=== PATIENT | female | born 1960 | race Caucasian/White ===

== ENCOUNTER 2016-07-23 06:45 | Observation (INO) | payer OTHER ==
[~2016-07-23] VITALS: Ht 177.8 cm; Wt 115.5 kg
[~2016-07-23 06:45] MED LIST: ADVAIR 500/501 DISK IH; ALEVE220 MG PO; ASPIR-LOW81 MG PO; BENICAR HCT 401 EAC1 PO; CARAFATE100 MG/ML PO; CITALOPRAM HBR20 MG PO; CLARITIN,ALAVAR10 MG PO; GLUCOMETER MC; LANCETS1 EACH MC; LASIX40 MG PO; METFORMIN HCL500 MG PO; MICRO-K10 ME2 PO; OPCON-A EYE DRO15 ML BOTH EYES; PERCOCET 5/31 TABLET PO; SINGULAIR10 MG PO; TEST STRIPS MC; VENTOLIN HFA18 GM IH; XARELTO20 MG PO
[2016-07-23 07:27] LABS: EOSINOPHIL (%) 2.3 % (0-5); EOSINOPHIL COUNT 0.2 K/uL (0-0.3); HEMATOCRIT 37.9 % (36.0-46.0); IMMATURE GRANULOCYTE (%) 0.8 % (0.0-0.7); IMMATURE GRANULOCYTE COUNT 0.1 K/uL; INSTRUMENT ABS NEUTROPHIL CT 4.6 K/uL; LYMPHOCYTE COUNT 2.4 K/uL (1.0-2.8); MCH 32.2 PG (29.0-34.0); MCHC 35.4 G/DL (30.0-36.0); MCV 91.1 FL (83-99); MEAN PLAT.VOLUME 9.7 uM^3 (9.5-12.4); MONOCYTE (%) 6.9 % (3-12); MONOCYTE COUNT 0.5 K/uL (0-0.8); NEUTROPHIL (%) 58.7 % (45-76); NEUTROPHIL COUNT 4.6 K/uL (1.8-6.4); PLATELET COUNT 237 K/uL (156-360); RBC DIS.WIDTH-CV 11.8 % (11.8-14.6); RBC DIS.WIDTH-SD 39.6 % (39-53); RED BLOOD COUNT 4.16 M/uL (3.80-5.20); WHITE BLOOD COUNT 7.9 K/uL (4.1-10.2)
[2016-07-23 07:40] LABS: D-DIMER ELISA 0.19 mg/L FEU (< 0.57); INTER. NORMALIZED RATIO 1.3; PROTHROMBIN TIME 13.6 (9.2-11.2); PTT 32.4 (25-32)
[2016-07-23 07:55] LABS: TROP-I INTERPRETATION NEGATIVE; TROPONIN-I < 0.01 ng/mL (0.0-0.30)
[2016-07-23 08:07] LABS: ADD MIUA? YES; BILIRUBIN NEGATIVE; BLOOD NEGATIVE; COLOR YELLOW ((YELLOW)); GLUCOSE (STRIP) >=500; KETONES NEGATIVE; LEUKOCYTES SMALL; NITRITE NEGATIVE; PROTEIN (STRIP) NEGATIVE; SPECIFIC GRAVITY 1.022 (1.000-1.030); UROBILINOGEN 0.2 MG/DL (0.2-1.0)
[2016-07-23 08:07] LABS: CHLORIDE 102 mEq/L (99-109); POTASSIUM 3.2 mEq/L (3.7-5.4); SODIUM 140 mEq/L (136-147)
[2016-07-23 08:08] LABS: GLUCOSE 321 mg/dL (70-99)
[2016-07-23 08:10] LABS: ANION GAP 11 MEQ/L (2-14)
[2016-07-23 08:12] LABS: GFR ESTIMATE (CALCULATED) > 59 mL/min/
[2016-07-23 08:13] LABS: UREA NITROGEN (BUN) 18 mg/dL (9-23)
[2016-07-23 08:39] LABS: BACTERIA NONE SEEN /HPF; EPITHELIAL CELLS 2+ /HPF; MUCUS NONE SEEN /LPF; RED BLOOD CELLS 0-5 /HPF (0-5); UCUL ADDED? NO; WHITE BLOOD CELLS 0-5 /HPF (0-5)
[2016-07-23 10:22] LABS: TROP-I INTERPRETATION NEGATIVE; TROPONIN-I < 0.01 ng/mL (0.0-0.30)
[2016-07-23 12:22] LABS: POINT-OF-CARE METER ID UU14100415
[2016-07-23] MEDS ORDERED: BENICAR40 MG PO (15:48)
[2016-07-23] MEDS ORDERED: PATADAY2.5 ML BOTH EYES (15:48)
[2016-07-23] MEDS ORDERED: HYDROCHLOROTHIA25 MG PO (15:49)
[2016-07-23] MEDS ORDERED: FUROSEMIDE40 MG PO (15:49)
[2016-07-23] MEDS ORDERED: KLOR-CON M2020 MEQ PO (15:49)
[2016-07-23] MEDS ORDERED: IBUPROFEN800 MG PO (15:50)
[2016-07-23] MEDS ORDERED: AFRIN,GENASAL D15 ML BOTH NARES (15:51)
[2016-07-23] MEDS ORDERED: PATANOL OP100 DROP/5 BOTH EYES (15:53)
[2016-07-23] MEDS ORDERED: XARELTO20 MG PO (15:55)
[2016-07-23 16:00] VITALS: BP 184/79
[2016-07-23 18:44] LABS: POINT-OF-CARE METER ID UU14162513
[2016-07-23 19:28] LABS: TROP-I INTERPRETATION NEGATIVE; TROPONIN-I < 0.01 ng/mL (0.0-0.30)
[2016-07-23 21:57] LABS: POINT-OF-CARE METER ID UU14162513
[2016-07-24] VITALS (7 sets, daily range): BP systolic 106–163; BP diastolic 53–74
[2016-07-24 01:58] LABS: TROP-I INTERPRETATION NEGATIVE; TROPONIN-I < 0.01 ng/mL (0.0-0.30)
[2016-07-24 08:19] LABS: POINT-OF-CARE METER ID UU13113700
[2016-07-24 12:12] LABS: HEMATOCRIT 35.1 % (36.0-46.0); MCH 32.5 PG (29.0-34.0); MCV 92.6 FL (83-99); MEAN PLAT.VOLUME 10.4 uM^3 (9.5-12.4); PLATELET COUNT 215 K/uL (156-360); RBC DIS.WIDTH-CV 11.9 % (11.8-14.6); RBC DIS.WIDTH-SD 40.4 % (39-53); RED BLOOD COUNT 3.79 M/uL (3.80-5.20); WHITE BLOOD COUNT 7.3 K/uL (4.1-10.2)
[2016-07-24 12:22] LABS: CHLORIDE 105 mEq/L (99-109); SODIUM 141 mEq/L (136-147)
[2016-07-24 12:25] LABS: GLUCOSE 234 mg/dL (70-99)
[2016-07-24 12:26] LABS: ANION GAP 8 MEQ/L (2-14); POTASSIUM 4.5 mEq/L (3.7-5.4)
[2016-07-24 12:27] LABS: TOTAL BILIRUBIN 0.7 mg/dL (0.0-1.0)
[2016-07-24 12:28] LABS: ALKALINE PHOSPHATASE 101 IU/L (3-129); GFR ESTIMATE (CALCULATED) > 59 mL/min/
[2016-07-24 12:29] LABS: UREA NITROGEN (BUN) 15 mg/dL (9-23)
[2016-07-24 12:36] LABS: TROP-I INTERPRETATION NEGATIVE; TROPONIN-I < 0.01 ng/mL (0.0-0.30)
[2016-07-24 12:53] LABS: POINT-OF-CARE METER ID UU13113700
[2016-07-24 17:13] LABS: POINT-OF-CARE METER ID UU14162513
[2016-07-24 17:32] LABS: TROP-I INTERPRETATION NEGATIVE; TROPONIN-I < 0.01 ng/mL (0.0-0.30)
[2016-07-24] MEDS ORDERED: LOSARTAN POTASS50 MG PO (19:23)
[2016-07-24] MEDS ORDERED: FIORICET,ESG1 TABLET PO (19:28)
== END 2016-07-24 20:04 | disposition home or self-care (01) ==
LOC: EME 06:45 → EDOF 15:30 → 5WEST 15:30
PROVIDERS: Emergency Medicine; Internal Medicine
DX: R07.89 Other chest pain (principal); E87.6 Hypokalemia; R06.02 Shortness of breath; I48.91 Unspecified atrial fibrillation; I10 Essential (primary) hypertension; E11.65 Type 2 diabetes mellitus with hyperglycemia; J45.909 Unspecified asthma, uncomplicated; F41.9 Anxiety disorder, unspecified; M19.90 Unspecified osteoarthritis, unspecified site; R53.1 Weakness; Z79.01 Long term (current) use of anticoagulants; I25.10 Atherosclerotic heart disease of native coronary artery without angina pectoris; E66.9 Obesity, unspecified
CPT/HCPCS: 71010; 73206; 80048; 80053; 81003; 82948; 84484; 85025; 85027; 85379; 85610; 85730; 93005; 93931; 99281; 99285; G0378; J1815; J2405; J7030

== ENCOUNTER 2017-05-02 21:55 | Emergency (ER) | payer OTHER ==
[~2017-05-02] VITALS: Ht 177.8 cm; Wt 114.5 kg
[~2017-05-02 21:55] MED LIST changes: +AFRIN,GENASAL D15 ML BOTH NARES; +BENICAR40 MG PO; +FIORICET,ESG1 TABLET PO; +FUROSEMIDE40 MG PO; +HYDROCHLOROTHIA25 MG PO; +IBUPROFEN800 MG PO; +KLOR-CON M2020 MEQ PO; +LOSARTAN POTASS50 MG PO; +PATADAY2.5 ML BOTH EYES; +PATANOL OP100 DROP/5 BOTH EYES
[2017-05-03] MEDS ORDERED: NAPROSYN500 MG PO (00:04)
[2017-05-03 00:59] VITALS: BP 185/86
== END 2017-05-03 01:00 | disposition home or self-care (01) ==
LOC: EME 21:55
DX: M54.16 Radiculopathy, lumbar region (principal); J45.909 Unspecified asthma, uncomplicated; I48.91 Unspecified atrial fibrillation; I10 Essential (primary) hypertension; E11.9 Type 2 diabetes mellitus without complications
CPT/HCPCS: 72131; 99281; 99283; J1100